=== PATIENT | female | born 1955 | race Caucasian/White ===

== ENCOUNTER 2021-11-05 11:58 | Inpatient (IN) | payer MEDICARE ==
[2021-11-05 13:08] LABS: #Eosinphils 0.3 thou/uL (0.0-0.7); #Lymphocytes 0.5 thou/uL (1.20-3.40); #Monocytes 0.4 thou/uL (0.11-0.59); #Neutrophils 7.5 thou/uL (1.40-6.50); %Basophils 0.1 % (0.0-1.0); %Eosinophils 3.3 % (0.0-10.0); %Lymphocytes 5.6 % (21.0-51.0); Mean Corpuscular HGB CONC 33.4 g/dL (32.0-36.0); Mean Corpuscular Hemoglobin 33.8 pg (27.0-31.0); Mean Platelet Volume 8.7 fL (7.4-10.4); Platelet Count 165 thou/uL (130-400); RBC Distribution Width 12.9 % (11.5-14.5); Red Blood Cell (RBC) Count 2.95 mill/uL (4.20-5.40); White Blood Cell (WBC) Count 8.7 thou/uL (4.8-10.8)
[2021-11-05 13:35] LABS: ALT (SGPT) Less than 7 U/L (8-55); AST (SGOT) 29 U/L (5-34); Albumin 3.5 g/dL (3.4-4.8); Alkaline Phosphatase 111 U/L (40-110); Anion Gap 24 mmol/L (10-20); BUN (Urea Nitrogen) 112 mg/dL (9.8-20.1); Bilirubin, Total 0.7 mg/dL (0.2-1.2); Calc. Creatinine Clearance 0 mL/min (70-130); Calcium 6.8 mg/dL (7.8-10.44); Carbon Dioxide 20 mmol/L (23-31); Chloride 92 mmol/L (98-107); Globulin 3.5 g/dL (2.4-3.5); Glucose 394 mg/dL (80-115); Potassium 6.4 mmol/L (3.5-5.1); Sodium 130 mmol/L (136-145)
[2021-11-05] MEDS ORDERED: Calcium Gluconate 9.2 MEQ in Sodium Chloride 0.9% 100 ML IVPB SCH (14:23)
[2021-11-05] MEDS ORDERED: Dextrose 50% Abboject 50 ML SYRINGE SLOW IVP SCH (14:24)
[2021-11-05] MEDS ORDERED: Insulin Regular 300 UNITS/3 ML VIAL IVP SCH (14:30)
[2021-11-05] MEDS ORDERED: Calcium Chloride 1 GM/10 ML Abboject SYRINGE ONE (14:32)
[2021-11-05] MEDS ORDERED: Insulin Regular 300 UNITS/3 ML VIAL ONE (14:32)
[2021-11-05] MEDS ORDERED: Acetaminophen 650 MG Suppository PR PRN (15:15)
[2021-11-05] MEDS ORDERED: Ondansetron PF 4 MG/2 ML Vial IVP PRN (15:15)
[2021-11-05] MEDS ORDERED: Ondansetron ODT 4 MG TAB PO PRN (15:15)
[2021-11-05] MEDS ORDERED: Acetaminophen 325 MG TAB PO PRN (15:15)
[2021-11-05] MEDS ORDERED: Albuterol Sulfate 2.5 mg/0.5 ml Neb ONE (15:24)
[2021-11-05] MEDS ORDERED: Albuterol Sulfate 2.5 mg/3 ml Neb ONE (15:24)
[2021-11-05] MEDS ORDERED: Dextrose 5% in Water 1,000 ML IV PRN (16:07)
[2021-11-05] MEDS ORDERED: Dextrose 50% Abboject 50 ML SYRINGE SLOW IVP PRN (16:07)
[2021-11-05] MEDS ORDERED: HumaLOG 300 UNITS/3 ML VIAL SC PRN (16:09)
[2021-11-05] MEDS ORDERED: Methocarbamol 500 MG TAB PO PRN (17:02)
[2021-11-05] MEDS ORDERED: HYDROcodone/Acetaminophen 5/325 mg Tablet PO PRN (17:02)
[2021-11-05 17:11] LABS: Hemoglobin A1c 8.9 % (4.0-6.0)
[2021-11-05 17:32] LABS: HBSAB Concentration Less than 8.00 mIU/mL; HBSAg Index 0.19 S/CO (0-0.99); Hep B Core Total Ab Non-Reactive (NonReactive); Hep B Core Total Index 0.06 S/CO (0-0.79); Hep B Surf AB Non-Reactive (NonReactive); Hep B Surf Ag Non-Reactive S/CO (NonReactive); Hep C IgG Ab Non-Reactive (NonReactive); Hep C Index 0.09 S/CO (0-0.79)
[2021-11-05 17:36] LABS: Anion Gap 22 mmol/L (10-20); BUN (Urea Nitrogen) 113 mg/dL (9.8-20.1); Calc. Creatinine Clearance 0 mL/min (70-130); Calcium 8.2 mg/dL (7.8-10.44); Carbon Dioxide 23 mmol/L (23-31); Chloride 93 mmol/L (98-107); Glucose 192 mg/dL (80-115); Sodium 133 mmol/L (136-145)
[2021-11-05] MEDS ORDERED: Carvedilol 6.25 MG TAB PO SCH (21:00)
[2021-11-05] MEDS ORDERED: Insulin Glargine 30 UNITS/0.3 ML VIAL SC SCH (21:00)
[2021-11-05] MEDS: Heparin 5,000 UNITS/ML VIAL SC SCH (22:11)
[2021-11-05] MEDS: Melatonin 3 MG TAB PO SCH (22:12)
[2021-11-05] MEDS: cloNIDine 0.2 MG TAB PO SCH (22:12)
[2021-11-05] MEDS: Calcium Acetate 667 MG CAP PO SCH (22:13)
[2021-11-05 22:18] VITALS: BMI 39.4
[2021-11-06 04:07] LABS: #Eosinphils 0.2 thou/uL (0.0-0.7); #Lymphocytes 0.5 thou/uL (1.20-3.40); #Monocytes 0.5 thou/uL (0.11-0.59); #Neutrophils 5.6 thou/uL (1.40-6.50); %Basophils 0.2 % (0.0-1.0); %Lymphocytes 7.7 % (21.0-51.0); %Monocytes 6.6 % (0.0-10.0); %Neutrophils 82.5 % (42.0-75.0); Hemoglobin 10.2 g/dL (12.0-16.0); Mean Corpuscular HGB CONC 33.2 g/dL (32.0-36.0); Mean Corpuscular Hemoglobin 33.6 pg (27.0-31.0); Mean Platelet Volume 8.3 fL (7.4-10.4); Platelet Count 196 thou/uL (130-400); RBC Distribution Width 13.3 % (11.5-14.5); Red Blood Cell (RBC) Count 3.03 mill/uL (4.20-5.40); White Blood Cell (WBC) Count 6.8 thou/uL (4.8-10.8)
[2021-11-06 04:34] LABS: Albumin 3.4 g/dL (3.4-4.8); Anion Gap 15 mmol/L (10-20); BUN (Urea Nitrogen) 55 mg/dL (9.8-20.1); Calc. Creatinine Clearance 17 mL/min (70-130); Calcium 7.9 mg/dL (7.8-10.44); Carbon Dioxide 29 mmol/L (23-31); Chloride 95 mmol/L (98-107); Glucose 294 mg/dL (80-115); Iron 47 ug/dL (50-170); Iron Binding Capacity, Total 200 mcg/dL (265-497); Phosphorus 3.6 mg/dL (2.3-4.7); Potassium 4.7 mmol/L (3.5-5.1); Sodium 134 mmol/L (136-145)
[2021-11-06] MEDS: cloNIDine 0.2 MG TAB PO SCH ×2 (05:02→21:52)
[2021-11-06] MEDS ORDERED: Levothyroxine Sodium 100 MCG TAB PO SCH (06:00)
[2021-11-06] MEDS: HumaLOG 300 UNITS/3 ML VIAL SC PRN (06:23)
[2021-11-06] MEDS ORDERED: hydrALAZINE 20 MG/ML VIAL SLOW IVP PRN (07:58)
[2021-11-06] MEDS ORDERED: Atorvastatin Calcium 40 MG TAB PO SCH (09:00)
[2021-11-06] MEDS ORDERED: Amlodipine 10 MG TAB PO SCH (09:00)
[2021-11-06] MEDS ORDERED: Non-Formulary Item 1 EACH (Linaclotide [Linzess] 145 MCG Capsule) PO SCH (09:00)
[2021-11-06] MEDS ORDERED: Epoetin (ESRD) 10,000 UNITS/ML VIAL SC SCH (09:00)
[2021-11-06] MEDS: Calcium Acetate 667 MG CAP PO SCH ×3 (09:20→21:53)
[2021-11-06] MEDS: Insulin Glargine 30 UNITS/0.3 ML VIAL SC SCH ×2 (09:21→21:54)
[2021-11-06] MEDS: Calcium Carbonate 600 MG + Vit D TAB PO SCH ×2 (09:21→17:13)
[2021-11-06] MEDS: Oxybutynin 5 MG TAB PO SCH (09:22)
[2021-11-06] MEDS: Labetalol HCl 100 MG TAB PO SCH ×2 (09:22→21:52)
[2021-11-06] MEDS: Aripiprazole 2 MG TAB PO SCH (09:22)
[2021-11-06] MEDS: NIFEdipine XL 60 MG TAB PO SCH ×2 (09:22→21:53)
[2021-11-06] MEDS: Heparin 5,000 UNITS/ML VIAL SC SCH ×3 (09:23→21:54)
[2021-11-06] MEDS: Venlafaxine HCl XR 150 MG CAP PO SCH (09:25)
[2021-11-06 12:32] LABS: SARS-CoV-2 PCR by NAA Not Detected (NotDetected)
[2021-11-06] MEDS: Melatonin 3 MG TAB PO SCH (21:53)
[2021-11-06] MEDS: Atorvastatin Calcium 40 MG TAB PO SCH (21:53)
[2021-11-07] MEDS: Levothyroxine Sodium 25 MCG TAB PO SCH (06:23)
[2021-11-07] MEDS: HumaLOG 300 UNITS/3 ML VIAL SC PRN (06:26)
[2021-11-07 07:15] LABS: Anion Gap 13 mmol/L (10-20); BUN (Urea Nitrogen) 39 mg/dL (9.8-20.1); Calc. Creatinine Clearance 20 mL/min (70-130); Calcium 8.1 mg/dL (7.8-10.44); Carbon Dioxide 31 mmol/L (23-31); Chloride 98 mmol/L (98-107); Glucose 265 mg/dL (80-115); Potassium 4.5 mmol/L (3.5-5.1); Sodium 137 mmol/L (136-145)
[2021-11-07] MEDS: Calcium Carbonate 600 MG + Vit D TAB PO SCH ×2 (08:46→16:55)
[2021-11-07] MEDS: Calcium Acetate 667 MG CAP PO SCH ×3 (08:47→20:11)
[2021-11-07] MEDS: cloNIDine 0.2 MG TAB PO SCH ×2 (08:47→20:10)
[2021-11-07] MEDS: Heparin 5,000 UNITS/ML VIAL SC SCH ×3 (08:48→20:12)
[2021-11-07] MEDS: Insulin Glargine 30 UNITS/0.3 ML VIAL SC SCH ×2 (08:48→20:12)
[2021-11-07] MEDS: NIFEdipine XL 60 MG TAB PO SCH ×2 (08:49→20:11)
[2021-11-07] MEDS: Labetalol HCl 100 MG TAB PO SCH ×2 (08:49→20:11)
[2021-11-07] MEDS: Oxybutynin 5 MG TAB PO SCH (08:50)
[2021-11-07] MEDS: Venlafaxine HCl XR 150 MG CAP PO SCH (08:50)
[2021-11-07] MEDS: Aripiprazole 2 MG TAB PO SCH (09:47)
[2021-11-07] MEDS ORDERED: cloNIDine 0.2 MG TAB PO SCH (17:00)
[2021-11-07] MEDS ORDERED: NIFEdipine XL 60 MG TAB PO SCH (17:00)
[2021-11-07] MEDS ORDERED: Labetalol HCl 100 MG TAB PO SCH (17:00)
[2021-11-07] MEDS: Atorvastatin Calcium 40 MG TAB PO SCH (20:11)
[2021-11-07] MEDS: Melatonin 3 MG TAB PO SCH (20:11)
[2021-11-08] MEDS ORDERED: hydrALAZINE 20 MG/ML VIAL SLOW IVP SCH (01:15)
[2021-11-08] MEDS: Levothyroxine Sodium 25 MCG TAB PO SCH (06:53)
[2021-11-08] MEDS: HumaLOG 300 UNITS/3 ML VIAL SC PRN (06:54)
[2021-11-08 07:43] LABS: Anion Gap 14 mmol/L (10-20); BUN (Urea Nitrogen) 42 mg/dL (9.8-20.1); Calc. Creatinine Clearance 21 mL/min (70-130); Calcium 8.2 mg/dL (7.8-10.44); Carbon Dioxide 29 mmol/L (23-31); Chloride 97 mmol/L (98-107); Glucose 211 mg/dL (80-115); Potassium 4.6 mmol/L (3.5-5.1); Sodium 135 mmol/L (136-145)
[2021-11-08] MEDS: Venlafaxine HCl XR 150 MG CAP PO SCH (09:01)
[2021-11-08] MEDS: Calcium Acetate 667 MG CAP PO SCH (09:01)
[2021-11-08] MEDS: Calcium Carbonate 600 MG + Vit D TAB PO SCH (09:01)
[2021-11-08] MEDS: cloNIDine 0.2 MG TAB PO SCH (09:01)
[2021-11-08] MEDS: Labetalol HCl 100 MG TAB PO SCH (09:02)
[2021-11-08] MEDS: Aripiprazole 2 MG TAB PO SCH (09:02)
[2021-11-08] MEDS: NIFEdipine XL 60 MG TAB PO SCH (09:02)
[2021-11-08] MEDS: Oxybutynin 5 MG TAB PO SCH (09:02)
[2021-11-08] MEDS: Insulin Glargine 30 UNITS/0.3 ML VIAL SC SCH (09:02)
[2021-11-08] MEDS: Heparin 5,000 UNITS/ML VIAL SC SCH (09:02)
[2021-11-08] MEDS ORDERED: Labetalol HCl 100 MG TAB PO SCH ×2 (10:00→21:00)
[2021-11-08 11:37] VITALS: BP 188/79; TEMP 98
== END 2021-11-08 15:21 | disposition home or self-care (01) | DRG 291 ==
LOC: ERS 11:58 → 2NO 14:48
PROVIDERS: ADMIT Emergency Medicine; ATTEND Emergency Medicine
PROC: 5A1D70Z Performance of Urinary Filtration, Intermittent, Less than 6 Hours Per Day (ICD-10-PCS; principal; 2021-11-05)
PROC: 5A1D70Z Performance of Urinary Filtration, Intermittent, Less than 6 Hours Per Day (ICD-10-PCS; 2021-11-06)
PROC: 5A1D70Z Performance of Urinary Filtration, Intermittent, Less than 6 Hours Per Day (ICD-10-PCS; 2021-11-07)
DX: I13.2 Hypertensive heart and chronic kidney disease with heart failure and with stage 5 chronic kidney disease, or end stage renal disease (principal); N18.6 End stage renal disease; J96.01 Acute respiratory failure with hypoxia; E87.2 Acidosis; E87.5 Hyperkalemia; E11.22 Type 2 diabetes mellitus with diabetic chronic kidney disease; D63.1 Anemia in chronic kidney disease; G89.29 Other chronic pain; K58.9 Irritable bowel syndrome, unspecified; F39 Unspecified mood [affective] disorder; G47.00 Insomnia, unspecified; N32.81 Overactive bladder; E11.65 Type 2 diabetes mellitus with hyperglycemia; I16.0 Hypertensive urgency; E66.01 Morbid (severe) obesity due to excess calories; F32.A Depression, unspecified; E66.9 Obesity, unspecified; Z68.38 Body mass index [BMI] 38.0-38.9, adult; I50.9 Heart failure, unspecified; E55.9 Vitamin D deficiency, unspecified; Z20.822 Contact with and (suspected) exposure to COVID-19; Z88.2 Allergy status to sulfonamides; Z99.2 Dependence on renal dialysis; Z88.8 Allergy status to other drugs, medicaments and biological substances; Z79.899 Other long term (current) drug therapy; Z90.710 Acquired absence of both cervix and uterus; Z79.4 Long term (current) use of insulin; Z87.891 Personal history of nicotine dependence
CPT/HCPCS: 36415; 36416; 71045; 71275; 80048; 80053; 80069; 82010; 82306; 82728; 83036; 83540; 83550; 83605; 83880; 84443; 84484; 85025; 85379; 86704; 86706; 86803; 86850; 86900; 86901; 87340; 90935; 93005; 93306; 94640; G0257; J0360; J1644; J1815; J7611; Q4081; U0003; U0005